=== PATIENT | female | born 1965 | race Caucasian/White ===

== ENCOUNTER 2021-05-06 15:04 | Emergency (ER) | payer OTHER ==
[~2021-05-06] VITALS: Ht 167.6 cm; Wt 70.3 kg
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
[2021-05-06] MEDS ORDERED: PERCOCET 10-321 EAC1 PO (16:01)
[2021-05-06 16:37] VITALS: BP 160/74
== END 2021-05-06 16:40 | disposition home or self-care (01) ==
LOC: ER 15:04
DX: S52.502A Unspecified fracture of the lower end of left radius, initial encounter for closed fracture (principal); E03.9 Hypothyroidism, unspecified; Z88.8 Allergy status to other drugs, medicaments and biological substances; Z91.018 Allergy to other foods; V89.2XXA Person injured in unspecified motor-vehicle accident, traffic, initial encounter; Y93.89 Activity, other specified; Y92.89 Other specified places as the place of occurrence of the external cause; Y99.8 Other external cause status

== ENCOUNTER 2021-06-06 13:20 | Emergency (ER) | payer OTHER ==
[~2021-06-06] VITALS: Ht 167.6 cm; Wt 70.3 kg
[~2021-06-06 13:20] MED LIST: PERCOCET 10-321 EAC1 PO
[2021-06-06] MEDS ORDERED: NORCO5 PO (16:18)
[2021-06-06 16:43] VITALS: BP 160/105
== END 2021-06-06 16:56 | disposition home or self-care (01) ==
LOC: ER 13:20
DX: S52.615A Nondisplaced fracture of left ulna styloid process, initial encounter for closed fracture (principal); S52.502A Unspecified fracture of the lower end of left radius, initial encounter for closed fracture; E03.9 Hypothyroidism, unspecified; Z79.891 Long term (current) use of opiate analgesic; Z88.8 Allergy status to other drugs, medicaments and biological substances; Z91.018 Allergy to other foods; V49.3XXA Car occupant (driver) (passenger) injured in unspecified nontraffic accident, initial encounter; Y93.89 Activity, other specified; Y92.89 Other specified places as the place of occurrence of the external cause; Y99.8 Other external cause status